=== PATIENT | male | born 1950 | race Caucasian/White ===

== ENCOUNTER 2021-07-21 10:13 | Outpatient (CLI) | payer MEDICARE, SELFPAY ==
--- NOTE | ~2021-07-21 | XR_ITS ---
XR chest 2V DATE: 07/21/2021 15:24 INDICATION: Edema TECHNIQUE: PA and lateral views COMPARISON: 05/11/2019 PA and lateral views FINDINGS: Normal heart size. No hilar or mediastinal enlargement. No pulmonary infiltrate or consolid ation, pleural effusion or pulmonary vascular congestion or pneumothorax. Degenerative spurring of the thoracic spine. IMPRESSION: No active cardiac pulmonary disease Degenerative spurring of the thoracic spine Reviewed, dictated and finalized at location A.
--- NOTE | ~2021-07-21 | US_ITS ---
EXAMINATION: US venous doppler [facility] DATE: 07/21/2021 15:13 INDICATION: Lower limb swelling TECHNIQUE: Grayscale ultrasound images without and with compression and Doppler ultrasound images of the bilateral lower extremity veins were obtained. COMPARISON: None. FINDINGS: The visualized portions of right common femoral vein, profunda (deep) femoral vein, femoral vein, pop liteal vein, posterior tibial veins, peroneal veins, gastrocnemius vein and greater saphenous vein ou tflow are patent. There are paired left femoral veins. The more superficial and larger diameter vein is patent. The cecy per and smaller caliber vein demonstrates small amount of nonocclusive peripheral hypoechoic thrombus with linear echogenic margins which can be seen with chronic thrombus. The visualized portions of le ft common femoral vein, profunda femoral vein, popliteal vein, posterior tibial veins, peroneal veins , gastrocnemius vein and greater saphenous vein outflow are patent. IMPRESSION: 1. Nonocclusive deep venous thrombosis in the smaller of [address] Hicks discusse d these findings with Dr. Rodriguez at 3:20 PM. 2. No right-sided deep venous thrombosis. Reviewed, dictated and finalized at location A. IMPRESSION: 1. Nonocclusive deep venous thrombosis in the smaller of [address] Hicks discussed these findings with Dr. Rodriguez at 3:20 PM. 2. No right-sided deep venous thrombosis.
[2021-07-21 15:57] LABS: Hematocrit 43.3 % (42.0-52.0); Hemoglobin 14.2 g/dL (14.0-18.0); Mean Corpuscular HGB Conc 32.8 g/dl (32-36); Mean Corpuscular Hemoglobin 28.8 pg (26-34); Mean Corpuscular Volume 87.8 fl (80-100); Mean Platelet Volume 9.2 fl (7.4-10.4); Platelet Count Result 190 k/mm3 (150-375); Red Blood Count 4.93 M/mm3 (4.6-6.20); Red Cell Distribution Width 13.6 % (11.5-14.5); White Blood Count 7.6 K/mm3 (4.5-10.0)
[2021-07-21 16:09] LABS: INR 1.1; Prothrombin Time 13.4 Seconds (11.1-14.7)
[2021-07-21 16:10] LABS: Partial Thromboplastin Time 29.7 SECONDS (22.3-36.8)
== END 2021-07-21 14:17 | disposition home or self-care (01) ==
PROVIDERS: PCP Internal Medicine; Visit Provider Internal Medicine
DX: R60.0 Localized edema (principal); R06.02 Shortness of breath; I82.412 Acute embolism and thrombosis of left femoral vein
CPT/HCPCS: 36415; 71046; 85027; 85610; 85730; 93970

== ENCOUNTER 2021-11-06 08:36 | Outpatient (CLI) | payer MEDICARE, SELFPAY ==
--- NOTE | ~2021-11-06 | US_ITS ---
EXAMINATION:US venous doppler LE LT INDICATION:Follow-up DVT. Patient on blood thinners. TECHNIQUE: Multiple grayscale, color flow and Doppler images of the left lower extremity deep venous systems were obtained and reviewed. COMPARISON:Ultrasound dated 07/21/2021 FINDINGS: The common femoral, superficial femoral and popliteal veins demonstrate normal respiratory variation, augmentation and compressibility. Color flow is also seen within the posterior tibial, pe roneal, greater saphenous and profunda veins. IMPRESSION: 1: No lower extremity deep venous thrombosis. Reviewed, dictated and finalized at location A.
== END 2021-11-06 08:37 | disposition home or self-care (01) ==
PROVIDERS: PCP Internal Medicine; Visit Provider Internal Medicine
DX: I82.412 Acute embolism and thrombosis of left femoral vein (principal)
CPT/HCPCS: 93971

== ENCOUNTER 2022-08-02 01:08 | Day surgery (SDC) | payer MEDICARE, SELFPAY ==
[2022-07-18 14:37] VITALS: BMI 32.8
--- NOTE | 2022-08-01 14:40 | PM.HPGS ---
History of Present Illness History of Present Illness Consent: Risks, benefits, and alternatives have been discussed and questions answered. Patient agrees to proceed with procedure. Chief complaint: hx colon polyps Narrative: Brijesh Shukla is a 72 year old male Referred for colon cancer screening. He had 3 polyps removed in 2010 and 5 more when he had a colonoscopy in 2016, And 4 more when he had his last colonoscopy about 4 years ago.. 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 Dental trauma DVT (deep venous thrombosis) Encounter for Medicare annual wellness exam Encounter for routine adult health examination with abnormal findings Encounter for routine adult health examination without abnormal findings Epistaxis Follow up Hammertoe of right foot Hand edema Hearing loss History of perforated ear drum with repair History of rectal polyps Hx of skin cancer, basal cell Hyperlipidemia Hypertension Left carpal tunnel syndrome Lumbar and sacral arthritis On fci drug therapy CHEN on CPAP Paresthesia of both hands Pedal edema Peptic ulcer Peripheral vision loss Petechiae Rash Rectal polyp Right otitis media Seasonal allergies Shingles Sinus mucosal thickening Skin cancer Skin lesion Toenail fungus Umbilical hernia Vitamin D deficiency Surgical History Surgical History H/O arthroscopic knee surgery H/O local excision of skin lesion H/O partial cystectomy H/O skin graft History of appendectomy History of cataract surgery lt eye History of total left hip arthroplasty Dr. Faye 2006 metal on metal History of tympanoplasty rt ear Hx of cardiac cath Hx of colonoscopy Family History Family History Father Cerebrovascular accident Family history of diabetes mellitus in first degree relative Diabetes mellitus Family history of cardiovascular disease Family history of heart disease in male family member before age 55 Hypertension Heart disease Mother Family history of heart disease in male family member before age 55 Family history of cardiovascular disease Daughter Asthma Sibling Hypertension Social History Social History Smoking status: Never smoker Second hand tobacco smoke exposure: No Alcohol intake: current Drinks per week: 9 Substance use type: does not use Lack of Transportation: No Lack of Food: Never True Current Housing: I Have Housing Concerned About Future Housing: No Difficulty Paying Gas/Electric Bills: No Difficulty Paying for Meds: No Currently Unemployed: No Education: High School Diploma/GED Difficulty w/ Childcare or Family Care: No Living arrangements: with family Additional living arrangements comments: [place] Occupation/Education: retired Gender identity (if verbalized by the patient): Male Meds Home Medications and Allergies Home Medications Medication Instructions Recorded Confirmed Type olmesartan 40 mg tablet See Rx Instructions PO DAILY #90 05/18/21 08/01/22 Rx tabs cholecalciferol (vitamin D3) 50 50 mcg PO DAILY 07/13/21 08/01/22 History mcg (2,000 unit) capsule aspirin 81 mg tablet,delayed 162 mg PO DAILY 11/21/21 08/01/22 History release (Adult Low Dose Aspirin) atorvastatin 20 mg tablet See Rx Instructions .Route 03/27/22 08/01/22 Rx .COMPLEX #90 tabs metoprolol succinate 100 mg See Rx Instr
[2022-08-02 06:43] VITALS: BP 149/69; PULSE 45; RESP 18; TEMP 36.4; O2SAT 99; BMI 32.5
[2022-08-02] MEDS: LACTATED RINGERS 1,000 ML 150 ML IV CONT (06:55)
[2022-08-02 08:09] VITALS: BP 104/54; PULSE 43; RESP 21; O2SAT 97
[2022-08-02 08:19] VITALS: BP 136/73; PULSE 40; RESP 14; O2SAT 97
[2022-08-02 08:29] VITALS: BP 155/72; PULSE 43; RESP 22; O2SAT 97
== END 2022-08-02 08:40 | disposition home or self-care (01) ==
PROVIDERS: PCP Internal Medicine; Visit Provider Internal Medicine Gastroenterology
PROC: 0DJD8ZZ Inspection of Lower Intestinal Tract, Via Natural or Artificial Opening Endoscopic (ICD-10-PCS; CPT 45378; principal; 2022-08-02 08:00)
DX: Z12.11 Encounter for screening for malignant neoplasm of colon (principal); K64.8 Other hemorrhoids; D12.3 Benign neoplasm of transverse colon; K63.5 Polyp of colon; I10 Essential (primary) hypertension; E78.5 Hyperlipidemia, unspecified; G47.33 Obstructive sleep apnea (adult) (pediatric); E55.9 Vitamin D deficiency, unspecified; F41.9 Anxiety disorder, unspecified; Z79.82 Long term (current) use of aspirin
CPT/HCPCS: 45385; 88305; J2704; J7120

== ENCOUNTER 2022-12-19 07:36 | Outpatient (CLI) | payer MEDICARE, SELFPAY ==
[2022-12-19 09:34] LABS: Anion Gap 8 mmol/L (8-16); Blood Urea Nitrogen 14 mg/dL (9-20); Carbon Dioxide 27 mmol/L (22-30); Chloride 95 mmol/L (98-107); Estimated Glomerular Filt Rate > 60; Glucose 107 mg/dL (65-110); Potassium 4.3 mmol/L (3.4-5.0); Sodium 130 mmol/L (137-145)
== END 2022-12-19 07:37 | disposition home or self-care (01) ==
LOC: ANHLAB 07:37
PROVIDERS: PCP Internal Medicine; Visit Provider Internal Medicine
DX: E87.1 Hypo-osmolality and hyponatremia (principal)
CPT/HCPCS: 36415; 80048

== ENCOUNTER 2022-12-28 09:37 | Outpatient (CLI) | payer MEDICARE, SELFPAY ==
--- NOTE | ~2022-12-28 | XR_ITS ---
EXAMINATION: XR chest 2V DATE: 12/28/2022 10:04 INDICATION: Hyperosmolar LT and hyponatremia TECHNIQUE: PA and lateral views of the chest are obtained. COMPARISON: 07/21/2021 FINDINGS: The lungs are free of acute opacities. No pleural effusion or pneumothorax. The cardiomedia stinal silhouette is normal. There is moderate thoracic spondylosis. IMPRESSION: 1. No acute cardiopulmonary abnormality. Reviewed, dictated and finalized at location B.
[2022-12-28 10:24] LABS: Anion Gap 6 mmol/L (8-16); Blood Urea Nitrogen 13 mg/dL (9-20); Calcium 8.8 mg/dL (8.4-10.2); Carbon Dioxide 28 mmol/L (22-30); Chloride 95 mmol/L (98-107); Estimated Glomerular Filt Rate > 60; Glucose 138 mg/dL (65-110); Potassium 4.4 mmol/L (3.4-5.0); Sodium 129 mmol/L (137-145)
[2022-12-31 21:01] LABS: Osmolality, Urine 292 mOsm/kg (50-1200)
== END 2022-12-28 09:38 | disposition home or self-care (01) ==
PROVIDERS: PCP Internal Medicine; Visit Provider Internal Medicine
DX: E87.1 Hypo-osmolality and hyponatremia (principal)
CPT/HCPCS: 36415; 71046; 80048; 83930; 83935

== ENCOUNTER 2023-01-01 06:35 | Outpatient (CLI) | payer MEDICARE, SELFPAY ==
--- NOTE | ~2023-01-01 | CT_ITS ---
Non-contrast Head CT History: Hyponatremia Technique: Axial non-contrast imaging of the brain was performed. Dose reduction technique was used on this scan by utilizing automated exposure control and iterative reconstruction technique. The dose -length product (DLP) was 605.33 mGy-cm. Findings: There is no evidence of intracranial hemorrhage, mass lesion, or acute infarct. Brain par enchyma appears normal. The ventricles and subarachnoid spaces are normal in size. The calvarium ap pears normal. The visualized paranasal sinuses and mastoid air cells are clear. Impression: No significant abnormality seen. Reviewed, dictated and finalized at location . Impression: No significant abnormality seen.
== END 2023-01-01 06:36 | disposition home or self-care (01) ==
PROVIDERS: PCP Internal Medicine; Visit Provider Internal Medicine
DX: E87.1 Hypo-osmolality and hyponatremia (principal); R53.1 Weakness
CPT/HCPCS: 70450

== ENCOUNTER 2023-01-16 07:26 | Outpatient (CLI) | payer MEDICARE, SELFPAY ==
[2023-01-16 08:38] LABS: Anion Gap 9 mmol/L (8-16); Blood Urea Nitrogen 14 mg/dL (9-20); Calcium 8.9 mg/dL (8.4-10.2); Carbon Dioxide 25 mmol/L (22-30); Chloride 100 mmol/L (98-107); Estimated Glomerular Filt Rate > 60; Glucose 104 mg/dL (65-110); Sodium 134 mmol/L (137-145)
== END 2023-01-16 07:27 | disposition home or self-care (01) ==
PROVIDERS: PCP Internal Medicine; Visit Provider Internal Medicine
DX: E87.1 Hypo-osmolality and hyponatremia (principal)
CPT/HCPCS: 36415; 80048

== ENCOUNTER 2023-03-04 06:56 | Outpatient (CLI) | payer MEDICARE, SELFPAY ==
--- NOTE | ~2023-03-04 | XR_ITS ---
Lumbosacral Spine: AP and lateral views Clinical History: Pain Findings: The normal lordotic curve is maintained. Mild chronic anterior wedging deformity of T12 and L1 noted. There is advanced degenerative disc narrowing at L4-L5 and L5-S1. There is moderate degene rative disc narrowing at remaining lumbar spine. Moderate to advanced facet joint degenerative change s present throughout the lumbar spine. The sacroiliac joints are normally outlined. Impression: Advanced degenerative spondylosis, as above. Mild chronic anterior wedging deformities of T12 and L1. Reviewed, dictated and finalized at location M. TED POLICE OFFICER Impression: Advanced degenerative spondylosis, as above. Mild chronic anterior wedging deformities of T12 and L1.
== END 2023-03-04 06:57 | disposition home or self-care (01) ==
PROVIDERS: PCP Internal Medicine; Visit Provider Internal Medicine
DX: M43.06 Spondylolysis, lumbar region (principal); S32.010A Wedge compression fracture of first lumbar vertebra, initial encounter for closed fracture; S22.080A Wedge compression fracture of T11-T12 vertebra, initial encounter for closed fracture
CPT/HCPCS: 72100

== ENCOUNTER 2023-05-16 08:00 | Outpatient (CLI) | payer MEDICARE, SELFPAY ==
--- NOTE | ~2023-05-16 | MR_ITS ---
EXAMINATION: MRI SACRUM W/O CONTRAST DATE: 05/16/2023 09:00 INDICATION: Unspecified low back pain TECHNIQUE: Magnetic resonance imaging (MRI) of the sacrum was performed without intravenous contrast. Sequences included sagittal PD-weighted FSE and fluid sensitive FSE STIR; oblique axial T1-weighted FSE and T2-weighted FS FSE; oblique coronal T2-weighted FSE, T1-weighted FSE and T2-weighted FS FSE. COMPARISON: Radiographs dated 08/01/2022 FINDINGS: Magnetic field artifact centered at the left acetabulum/with a left total hip arthroplasty. Bone alig nment is normal. Somewhat heterogeneous pattern of red and yellow marrow signal. Severe lower lumbar spondylosis with associated fibrofatty and fibrovascular degenerative endplate changes along the sha rely narrowed disc space. Large bridging anterior osteophyte at L5-S1. Moderate osteoarthritis at the bilateral sacroiliac joints. There are no erosions to suggest inflammatory sacroiliitis. Mild mucosa l trabeculation the bladder likely related to chronic outlet obstruction from the partially visualize d enlarged prostate which measures at least 5.6 x 4.5 cm. No free fluid or pathologically enlarged ly mphadenopathy in the visualized pelvis. There are cysts at the right kidney, the larger partially vis ualized cyst measuring at least 5.9 cm. IMPRESSION: 1. Moderate bilateral sacroiliac osteoarthritis with no erosions to suggest inflammatory sacroiliitis . 2. Severe lower lumbar spondylosis. Reviewed, dictated and finalized at location A. FICIAL TEETH INSPECTOR IMPRESSION: 1. Moderate bilateral sacroiliac osteoarthritis with no erosions to suggest inf lammatory sacroiliitis. 2. Severe lower lumbar spondylosis.
--- NOTE | ~2023-05-16 | MR_ITS ---
MRI of the lumbar spine Clinical History: Back pain Technique: Axial T2-weighted images, and sagittal T1-weighted, T2-weighted, and T2 fat-sat images wer e acquired. Findings: There is acute, minimal compression fracture of L1, with hypointense fracture line, marrow edema, and minimal loss of height. There is minimal grade 1 retrolisthesis of L2 over L3. There is he terogeneous marrow signal, related to underlying degenerative disc disease. At L1-L2, there is disc bulge and moderate facet arthropathy. No ivory central canal stenosis. There is moderate to severe bilateral neural foraminal narrowing. At L2-L3, there is advanced degenerative disc narrowing. Disc bulge and facet arthropathy result in s evere central canal stenosis/thecal sac compression. There is moderate to severe right neural foramin al narrowing, and mild to moderate left neural foraminal narrowing. At L3-L4, there is advanced degenerative disc narrowing. Disc bulge and facet arthropathy result in m ild to moderate central canal stenosis. There is moderate to advanced right neural foraminal narrowin g, and moderate left neural foraminal narrowing. At L5-S1, there is severe degenerative disc narrowing. There is advanced facet arthropathy with minim al disc bulge. There is minimal central canal stenosis. There is moderate left neural foraminal narro wing. Right neural foramen preserved. At L5-S1, there is severe degenerative disc change. There is disc bulge and moderate facet arthropath y. No ivory central canal stenosis. There is moderate to severe bilateral neural foraminal narrowing. Paravertebral soft tissues are unremarkable. Impression: Acute, mild compression fracture of L1. Advanced degenerative spondylosis in the lumbar spine, as detailed above. Reviewed, dictated and finalized at location M. TROUBLE SHOOTER Impression: Acute, mild compression fracture of L1. Advanced degenerative spondylosis in the lumbar spine, as detailed above.
== END 2023-05-16 08:01 | disposition home or self-care (01) ==
PROVIDERS: PCP Internal Medicine; Visit Provider Internal Medicine
DX: M54.41 Lumbago with sciatica, right side (principal); G89.29 Other chronic pain; M25.551 Pain in right hip; M25.552 Pain in left hip; M47.896 Other spondylosis, lumbar region
CPT/HCPCS: 72148; 72195; 72197

== ENCOUNTER 2023-06-05 11:44 | Outpatient (CLI) | payer MEDICARE, SELFPAY ==
--- NOTE | ~2023-06-05 | DEXA_ITS ---
Bone Density Report Name: HALEY SARGENT Age: 73 Sex: Male Ethnicity: White Date of : 1950 Indication: screening for osteoporosis; Referring Provider: JANET SHETH Study: Bone densitometry was performed. Exam Date: June 05, 2023 Accession number: [id number] Bone Density: Region BMD T-score Z-score Classification AP Spine(L1-L4) 1.456 3.3 4.3 Normal Femoral Neck (Right) 0.994 0.5 1.7 Normal Total Hip (Right) 1.114 0.5 1.3 Normal World Health Organization criteria for BMD impression classify patients as: Normal (T-score at or above -1.0), Osteopenia (T-score between -1.0 and -2.5), or Osteoporosis (T-score at or below -2.5). 10-year Fracture Risk: FRAX not reported because: All T-scores for Spine Total, Hip Total, Femoral Neck at or above -1.0 Clinical Information Provided by Patient: Has used the following medications: Vitamin D Patient maximum height was 72 No regular weight bearing exercise Drinks caffeinated beverages Impression: The patient has normal bone mass. Discussion: BONE DENSITY IS ABOVE THE MINIMUM DESIRABLE LEVEL AT ALL SKELETAL SITES TESTED. This patient?s bone mineral density is above the minimum desirable level (T-score -1.0 or better) at all sites measured. The patient should follow a healthful lifestyle (good nutrition with adequate calcium and vitamin D, and appropriate weight-bearing exercise). Follow-Up: Consider repeating this study in 5 years or sooner if there is some new clinical indication. Reported by: Dr. Blaise Castañeda on 06/05/2023 12:08:00 PM. Reviewed, dictated and finalized at location A.
== END 2023-06-05 11:45 | disposition home or self-care (01) ==
LOC: CHSIMG 11:45
PROVIDERS: PCP Internal Medicine; Visit Provider Internal Medicine
DX: S32.000A Wedge compression fracture of unspecified lumbar vertebra, initial encounter for closed fracture (principal)
CPT/HCPCS: 77080

== ENCOUNTER 2023-07-08 17:25 | Outpatient (CLI) | payer MEDICARE, SELFPAY ==
--- NOTE | ~2023-07-08 | XR_ITS ---
EXAM: XR hip RT 2V w AP pelvis DATE: 07/08/2023 17:39 HISTORY: M25.551 - ANTERIOR RIGHT HIP PAIN X1 WK . COMPARISON: X-ray left hip and pelvis 08/01/2022. FINDINGS: Normal mineralization. Partially visualized bipolar left hip arthroplasty. Significant lum bar degenerative change including large bridging osteophytes. Pelvic and hip enthesopathy. Amorphous calcification adjacent to the greater trochanter on the right. Moderate superior right hip joint spac e narrowing. Mild right hip osteoarthritis. IMPRESSION: Moderate right hip osteoarthritis. Right gluteus medius calcific tendinitis. Reviewed, dictated and finalized at location K. IMPRESSION: Moderate right hip osteoarthritis. Right gluteus medius calcific te ndinitis.
== END 2023-07-08 17:26 | disposition home or self-care (01) ==
LOC: ANHIMG 17:26
PROVIDERS: PCP Internal Medicine; Visit Provider Internal Medicine
DX: M16.11 Unilateral primary osteoarthritis, right hip (principal); M76.01 Gluteal tendinitis, right hip
CPT/HCPCS: 73502

== ENCOUNTER 2023-08-09 10:58 | Outpatient (CLI) | payer MEDICARE, SELFPAY ==
[2023-08-09 11:23] LABS: Appearance Urine Clear (Clear); Bacteria Urine None Seen /hpf; Bilirubin Urine Negative (Negative); Blood Urine 3+ (Negative); Color Urine Yellow (Yellow); Glucose Urine UA Negative (Negative); Ketones Urine Negative (Negative); Leukocyte Esterase Ur 1+ LEU/UL (Negative); Nitrate Urine Negative (Negative); Non Pathogenic Casts 0-2; Protein Urine Negative (Negative); RBC Urine >100 /hpf (0-2); Squamous Epithelial Cell Urine None Seen /hpf (Few); Urobilinogen Urine 0.2 mg/dL (<2.0); WBC Urine 21-50 /hpf (0-3); pH Urine 6.5 (5.0-9.0)
[2023-08-09 11:25] LABS: Add Urine Microscopic? YES
== END 2023-08-09 10:59 | disposition home or self-care (01) ==
PROVIDERS: PCP Internal Medicine; Visit Provider Internal Medicine
DX: R31.9 Hematuria, unspecified (principal)
CPT/HCPCS: 81001; 87086

== ENCOUNTER 2023-08-14 10:05 | Outpatient (CLI) | payer MEDICARE, SELFPAY ==
--- NOTE | ~2023-08-14 | CT_ITS ---
EXAMINATION: CT abdomen pelvis wo con DATE: 08/14/2023 10:24 INDICATION: Hematuria, unspecified. TECHNIQUE: Computed tomography (CT) of the abdomen and pelvis was performed without intravenous contr ast. Automated exposure control and iterative reconstruction technique were employed. The dose-length product was 1092.72 mGy-cm. COMPARISON: None. FINDINGS: The visualized portions of the lung bases demonstrate mild atelectasis. No pleural effusion . The heart size is normal. No pericardial effusion. There are 2 cysts in the liver measuring up to 1 7 mm. The gallbladder is contracted. The spleen, pancreas, and adrenal glands are normal. There are c ysts in the kidneys measuring up to 6.9 cm on the left. There is diffuse bladder wall thickening, lik prisca secondary to chronic outlet obstruction from the moderately enlarged prostate. There is no urolit hiasis. There is a left inguinal hernia containing fat. There are changes of appendectomy. Aortic ath erosclerosis is noted. There are no pathologically enlarged lymph nodes. There is no free intraperito xavier fluid. There is a left hip arthroplasty. There is severe lumbar spondylosis. There is mild chron ic height loss of multiple vertebral bodies. IMPRESSION: 1. Diffuse bladder wall thickening, likely secondary to chronic outlet obstruction from the moderatel y enlarged prostate. Reviewed, dictated and finalized at location E. IMPRESSION: 1. Diffuse bladder wall thickening, likely secondary to chronic outlet obstruct ion from the moderately enlarged prostate.
== END 2023-08-14 10:06 ==
LOC: GOSHIMG 10:05
PROVIDERS: PCP Internal Medicine; Visit Provider Internal Medicine
DX: R31.9 Hematuria, unspecified (principal)
CPT/HCPCS: 74176

== ENCOUNTER 2025-03-11 16:11 | Outpatient (CLI) | payer MEDICARE, SELFPAY ==
--- NOTE | ~2025-03-11 | XR_ITS ---
EXAMINATION: Pelvis 3 views: DATE: 03/11/2025. INDICATION: Hip pain. Previous left hip arthroplasty. TECHNIQUE: 3 views of both hips and pelvis. were obtained. COMPARISON: Pelvis and hip x-ray dated 07/08/2023. FINDINGS: Postoperative changes of total hip arthroplasty in satisfactory alignment of the left hip. Moderate degenerative arthritis of right hip. Calcific tendinitis over the greater trochanter at the right hip. Bilateral sacroiliac arthritis. IMPRESSION: 1. Total hip arthroplasty device at the left hip in satisfactory alignment. 2. Degenerative arthritis of right hip and bilateral sacroiliac joints look prior study. Calcific tendinitis over the greater trochanter right hip. Reviewed, dictated and finalized at location T. RACT PROJECT MANAGER IMPRESSION: 1. Total hip arthroplasty device at the left hip in satisfactory alignment. 2. Degenerative arthritis of right hip and bilateral sacroiliac joints look wendy or study. Calcific tendinitis over the greater trochanter right hip.
--- NOTE | ~2025-03-11 | XR_ITS ---
EXAMINATION: XR knee RT 3V DATE: 03/11/2025 16:52 INDICATION: Right knee pain. TECHNIQUE: 4 views of the right knee were obtained. COMPARISON: None. FINDINGS: No acute bony lesions. Thickening grade 3-4 degenerative changes of medial compartment. Milder degenerative changes of lateral compartment the patellofemoral joints. Soft tissues are unremarkable. IMPRESSION: 1. Significant, grade 3 to grade 4 degenerative changes of medial compartment of the right knee. Reviewed, dictated and finalized at location T. CAL ASSISTANT FLOAT IMPRESSION: 1. Significant, grade 3 to grade 4 degenerative changes of medial compartment o f the right knee.
--- NOTE | ~2025-03-11 | XR_ITS ---
EXAMINATION: Lumbosacral spine 4 views: DATE: 03/11/2025. INDICATION: Low back pain TECHNIQUE: 4 views of the lumbosacral spine were obtained. COMPARISON: None. FINDINGS: No acute bony lesions. Severe multilevel degenerative disc changes involving the lower thoracic discs and all lumbar discs. Significant facet arthropathy is noted at L2-3, L4-5 and L5-S1 levels. Soft tissues show calcific changes of abdominal aorta. IMPRESSION: 1. Severe multilevel degenerative disc disease and facet arthropathy. Calcific changes of abdominal aorta. Reviewed, dictated and finalized at location T. IONS CLERK
--- OUTSIDE RECORDS SUMMARY | 2025-03-11 08:30 | XMS_ITS | Encounter Summary ---
[facility] Address [address] [place] [address] Phone Care Team Providers Care Travel Assistant Name Role Phone Jorge Rodriguez MD Primary Care Provider [phone] Fernando Herrera MD Unavailable [phone] Jorge Coffey MD Unavailable [phone] Reason for Visit * Reason Comments Chemotherapy Encounter Details Date Type Department Care Team (Latest Contact Info) Description 03/11/2025 8:30 AM ACTIVITY LEADER Clinical Support [facility] [address] [address] Malignant neoplasm of urinary bladder, unspecified site (Primary Dx); Malignant neoplasm of overlapping sites of bladder Social History Tobacco Use Types Packs/Day Years Used Date Smoking Tobacco: Never Smokeless Tobacco: Never Alcohol Use Standard Drinks/Week Comments Yes 15 (1 standard drink = 0.6 oz pu re alcohol) Sex and Gender Information Value Date Recorded Sex Assigned at Not on file Legal Sex Male 2:13 PM CDT Gender Identity Not on file Sexual Orientation Not on file documented as of this encounter Functional Status * BP Answer Date of Assessment Author 150/82 03/11/2025 8:35 AM Kirsty Hassan RN * Temp Answer Date of Assessment Author 98 03/11/2025 8:35 AM Kirsty Hassan RN * Pulse Answer Date of Assessment Author 74 03/11/2025 8:35 AM Kirsty Hassan RN * Resp Answer Date of Assessment Author 16 03/11/2025 8:35 AM Kirsty Hassan RN * SpO2 Answer Date of Assessment Author 97 03/11/2025 8:35 AM Kirsty Hassan RN * Height Answer Date of Assessment Author 71 03/11/2025 8:35 AM Kirsty Hassan RN * Question Answer Date of Assessment Author Initial Score 0 03/11/2025 8:36 AM Kirsty Yu RN Little interest or pleasure in doing things Not at all 03/11/2025 8:36 AM Kirsty De Santiago RN Feeling down, depressed, or hopeless Not at all 03/11/2025 8:36 AM Kirsty De Santiago RN * Question Answer Date of Assessment Author Initial Score 0 03/11/2025 8:36 AM Kirsty Yu RN Little interest or pleasure in doing things Not at all 03/11/2025 8:36 AM Kirsty De Santiago RN Feeling down, depressed, or hopeless Not at all 03/11/2025 8:36 AM Kirsty De Santiago RN * Over the past 2 weeks, how often have you been bothered by any of the following problems? Question Answer Date of Assessment Author Patient Health Questionnaire -2 Score 0 03/11/2025 8:36 AM Kirsty De Santiago RN documented as of this encounter Mental Status * BP Answer Entry Date Author 150/82 03/11/2025 8:35 AM Kirsty Hassan RN * Temp Answer Entry Date Author 98 03/11/2025 8:35 AM Kirsty Hassan RN * Pulse Answer Entry Date Author 74 03/11/2025 8:35 AM Kirsty Hassan RN * SpO2 Answer Entry Date Author 97 03/11/2025 8:35 AM Kirsty Hassan RN * Question Answer Entry Date Author Initial Score 0 03/11/2025 8:36 AM ACTIVITY LEADER Kirsty Reis RN Little interest or pleasure in doing things Not at all 03/11/2025 8:36 AM Kirsty De Santiago RN Feeling down, depressed, or hopeless Not at all 03/11/2025 8:36 AM ACTIVITY LEADER Kirsty Martínez RN documented in this encounter Progress Notes * Tracy Mckinney RN - 03/11/2025 10:56 AM CST 03/11/25 0916 Single Lumen Implantable Port 10/22/23 Right Chest Placement Date: 10/22/23 Orientation: Right Implantable Port Location: Chest Line Status Flushed;Heparin locked Dressing Status Removed Dressing Intervention Removed Implantable Port Flush Performed Yes Line Necessity Yes, meets criteria De-Accessed Date 03/11/25 De-Accessed Time 0916 VITY LEADER * Tracy Mckinney RN - 03/11/2025 10:55 AM CST Tolerated Pembrolizumab well. Chemotherapy/Immunotherapy drug verification was completed by two nurses, checking the physicality of the bag of fluid and accompanying label against the original order for accuracy of patient name, or MRN, drug name, drug dose, infusion volume, route of administration, infusion rate, appearance and integrity of the drug, drug expiration date and time was verified using the CCSI specific drugSOP, and the rate and volume of the infusion as stated on the infusion bag. Drug sequencing was verified according the the treatment plan, NCCN guidelines, SOP, or other ONS approved references. Chemotherapy/Immunotherapy treatment completed as prescribed by the practitioner without signs or symptoms of hypersensitivity reactions. Possible side effects and side effect management reviewed with patient prior to discharge. Discussed if patient had need for assistance with social welfare research worker, dietary assistance, and/or transportation needs. Denied psychosocial concerns at this time. Reviewed how to notify the clinic during and after office hours if needed. Reviewed patient's follow-up appointment. ECOG status unchanged from arrival to Infusion area. Discharged ambulatory unaccompanied. 03/11/25 0838 Single Lumen Implantable Port 10/22/23 Right Chest Placement Date: 10/22/23 Orientation: Right Implantable Port Location: Chest Access Date 03/11/25 Access Time 0838 Accessed by: HARLEEN Molina Catheter Size 20 G Needle Length 3/4 in Site Assessment Clean;Dry;Intact Line Status Blood return noted;Flushed;Infusing Dressing Type Other (Comment) (Steri Strips) Dressing Status Clean;Dry;Intact Dressing Intervention New dressing Implantable Port Flush Performed Yes Line Necessity Yes, meets criteria VITY LEADER documented in this encounter Plan of Treatment Upcoming Encounters Date Type Department Care Team (Late st Contact Info) Description 05/13/2025 8:45 AM ACTIVITY LEADER Office Visit [facility] [address] [address] Jorge Coffey MD [address] [place] [address] documented as of this encounter Visit Diagnoses Diagnosis Malignant neoplasm of urinary bladder, unspecified site- Primary Malignant neoplasm of overlapping sites of bladder Malignant neoplasm of other specified sites of bladder documented in this encounter Administered Medications Inactive Administered Medications - up to 3 most recent administrations Medication Order MAR Action Action Date Dose Rate Site pembrolizumab (KEYTRUDA) 200 mg in sodium chloride 0.9 % 100 mL IVPB 200 mg, Intravenous, ONCE, 1 dose, On Saskia 03/11/25 at 0900, Administer over 30 Minutes, Route IV. NS 100 ml. Infuse over 30 minutes. Administer with 0.22 micron in-line filter. Observe closely for hypersensitivity reaction. Chemo: Medication requires special safe handling and disposal.Indications:Malignant neoplasm of urinary bladder, unspecified site,Malignant neoplasm of overlapping sites of bladder New Bag 03/11/2025 8:40 AM ACTIVITY LEADER 200 mg 200 mL/hr documented in this encounter Care Teams Travel Assistant Relationship Specialty Start Date End Date Jorge Rodriguez MD PCP - General Internal Medicine 10/03/23 Fernando Herrera MD [address] [place] [address] Consulting Physician Urology 10/03/23 Jorge Coffey MD [address] [place] [phone] Consulting Physician Oncology 10/23/23 documented as of this encounter
--- OUTSIDE RECORDS SUMMARY | 2025-03-11 08:45 | XMS_ITS | Encounter Summary ---
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 Malignant neoplasm of overlapping sites of bladder Procedures CT CHEST ABDOMEN AND PELVIS W CONTRAST Jorge Coffey MD [address] [place] [address] Phone: tel: fax: Referral ID Status Reason Start Date Expiration Date Visits Re quested Visits Authorized [id number] Open 03/11/2025 1 1 CTOR OF CLINICAL EDUCATION Reason for Visit * Reason Comments Follow-up Encounter Details Date Type Department Care Team (Late st Contact Info) Description 03/11/2025 8:45 AM DIRECTOR OF CLINICAL EDUCATION Office Visit [facility] [address] [address] Jorge Coffey MD [address] [place] [address] 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 (Primary Dx); Malignant neoplasm of overlapping sites of bladder; Abnormal findings on diagnostic imaging of other specified body structures Social History Tobacco Use Types Packs/Day Years Used Date Smoking Tobacco: Never Smokeless Tobacco: Never Tobacco Cessation:Counseling Given: Not Answered Alcohol Use Standard Drinks/Week Comments Yes 15 (1 standard drink = 0.6 oz pu re alcohol) Sex and Gender Information Value Date Recorded Sex Assigned at Not on file Legal Sex Male 2:13 PM CDT Gender Identity Not on file Sexual Orientation Not on file documented as of this encounter Last Filed Vital Signs Vital Sign Reading Time Taken Comments Blood Pressure 150/82 03/11/2025 8:35 AM DIRECTOR OF CLINICAL EDUCATION Pulse 74 03/11/2025 8:35 AM DIRECTOR OF CLINICAL EDUCATION Temperature 36.7 C (98 F) 03/11/2025 8:35 AM DIRECTOR OF CLINICAL EDUCATION Respiratory Rate 16 03/11/2025 8:35 AM DIRECTOR OF CLINICAL EDUCATION Oxygen Saturation 97% 03/11/2025 8:35 AM DIRECTOR OF CLINICAL EDUCATION Inhaled Oxygen Concentration - - Weight - - Height 180.3 cm (5' 11) 03/11/2025 8:35 AM DIRECTOR OF CLINICAL EDUCATION Body Mass Index - - documented in this encounter Functional Status * BP Answer [...] 8:36 AM Kirsty De Santiago RN documented in this encounter Plan of Treatment Upcoming Encounters Date Type Department Care Team (Late st Contact Info) Description 05/13/2025 8:45 AM DIRECTOR OF CLINICAL EDUCATION Office Visit [facility] [address] [address] Jorge Coffey MD [address] [place] [address] Scheduled Orders Name Type Priority Associated Diagnoses Orde r Schedule COMPLETE BLOOD COUNT (CBC) WITH DIFF Lab Routine 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 Malignant neoplasm of overlapping sites of bladder Expected: 05/06/2025, Expires: 08/04/2025 CMP (COMPREHENSIVE METABOLIC PANEL) Lab Routine 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 Malignant neoplasm of overlapping sites of bladder Expected: 05/06/2025, Expires: 08/04/2025 LACTATE DEHYDROGENASE (LD) Lab Routine 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 Malignant neoplasm of overlapping sites of bladder Expected: 05/06/2025, Expires: 08/04/2025 MAGNESIUM (MG) Lab Routine 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 Malignant neoplasm of overlapping sites of bladder Expected: 05/06/2025, Expires: 08/04/2025 THYROID STIMULATING HORMONE (TSH) Lab Routine 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 Malignant neoplasm of overlapping sites of bladder Abnormal findings on diagnostic imaging of other specified body structures Expected: 05/06/2025, Expires: 08/04/2025 VITAMIN B12 Lab Routine 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 Malignant neoplasm of overlapping sites of bladder Expected: 05/06/2025, Expires: 08/04/2025 CT CHEST ABDOMEN AND PELVIS W CONTRAST Imaging Routine 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 Malignant neoplasm of overlapping sites of bladder Expected: 05/06/2025, Expires: 08/04/2025 documented as of this encounter Visit Diagnoses Diagnosis 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
--- OUTSIDE RECORDS SUMMARY | 2025-03-11 18:16 | XMS_ITS ---
Author Organization [facility] Address [address], [facility] [address] [place] [address] Phone Care Team Providers Care Insurance Adjustor Name Role Phone Jorge Rodriguez MD Primary Care Provider [phone] Fernando Herrera MD Unavailable [phone] Jorge Coffey MD Unavailable [phone] Active Problems Problem Noted Date Diagnosed Date Atrial fibrillation 06/25/2024 Fatigue 06/25/2024 Malignant neoplasm of overlapping sites of bladd er 03/13/2024 HTN (hypertension) 03/12/2024 Malignant neoplasm of urinary bladder 10/10/2023 Current Treatment and Therapy Plans [facility]: Pembrolizumab - 21 Day Cycle - Multiple Disease States* Plan Start Date: 03/19/2024 Plan Provider:Jorge Coffey MD Linked Problems Malignant neoplasm of urinar y bladder, unspecified siteMalignant neoplasm of overlapping sites of bladder Treatment Medications Current Day (Day 1 , Cycle 18 - Planned for 04/02/2025) Next Day (Day 1, Cycle 19 - Planned for 04/24/2025) pembrolizumab (KEYTRUDA) IVPB pembrolizu mab (KEYTRUDA) 200 mg in sodium chloride 0.9 % 100 mL IVPB pembrolizumab (KEYTRUDA) 200 mg in sodium chloride 0.9 % 100 mL IVPB SUPPORT - HYDRATION WITH ADDITIVES - [facility]* Plan Start Date:10/31/2023 Plan Provider:Jorge Coffey MD Linked Problems Malignant neoplasm of anteri or wall of urinary bladder Treatment Medications No medications scheduled. Past Treatment and Therapy Plans ONCOLOGY TREATMENT Plan Name Start Date Discontinue Date Treatment Medications Discontinue Reason Plan Provider Cycles BLADDER - CISPLATIN/G EMCITABINE - [facility] 10/17/2023 03/12/2024 CISplatin (PLATINOL) chemo infusion using 100 mggemcitabine (GEMZAR) chemo infusion Plan Clean Up Jorge Coffey MD 4 of 4 cycles started Lifetime Dose Tracking * Chemical Lifetime Dose Automatic Entry Manual Entr y Cisplatin 280.043 mg/m2 (642 mg) 280.043 mg/m2 (642 mg) 0 mg/m2 (0 mg)
--- OUTSIDE RECORDS SUMMARY | 2025-03-11 18:16 | XMS_ITS | Encounter Summary ---
Author Organization [facility] Address [facility] [facility] [place] [address] Care Team Providers Care Assistant Professor Sculpture Name Role Phone Jorge Rodriguez MD Primary Care Provider [phone] Encounter Details Date Type Department Care Team (Late st Contact Info) Description 07/28/2024 Lab Requisition [facility] - DermPath Lab [address] [facility] [place] [id number] Tee Morris MD [facility] DERMAT[facility] [address] [place] [phone] Neoplasm of uncertain behavior of skin Social History Tobacco Use Types Packs/Day Years Used Date Smoking Tobacco: Never Assessed Sex and Gender Information Value Date Recorded Sex Assigned at Not on file Legal Sex Male 12:54 PM JANITORIAL ACCOUNT MANAGER Gender Identity Not on file Sexual Orientation Not on file documented as of this encounter Plan of Treatment Not on file documented as of this encounter Procedures Procedure Name Priority Date/Time Associated Diagnosis Comments DERMATOPATHOLOGY Routine 07/28/2024 3:33 AM CDT Neoplasm of uncertain behavior of skin documented in this encounter Results * DERMATOPATHOLOGY (07/28/2024 3:33 AM CDT) Case Report Dermatopathology Report Case: [id number] Authorizing Provider: Tee Morris MD Collected: 07/28/2024 03:33 AM Ordering Location: [facility] - Received: 07/29/2024 01:09 PM DermPath Lab Pathologist: Patsy Kirby MD Specimens: A) - Skin, right lower neck B) - Skin, left upper back 3:31 PM T DERMATOPATHOLOGY LABORATORY Final Diagnosis Specimen A. SKIN, right lower neck: BASAL CELL CARCINOMA, NODULAR TYPE (C44.41) GRANULOMATOUS DERMATITIS CONSISTENT WITH A RUPTURED CYST OR HAIR FOLLICLE (L72.0) Specimen B. 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 The specimen consists of a shave biopsy measuring 12x7x2 mm. Jar 0. Specimen B: Received is one formalin filled container labeled with the patient's name and designated left upper back. The specimen consists of a shave biopsy measuring 12x7x2 mm. Jar 0. 3:31 PM T DERMATOPATHOLOGY LABORATORY Microscopic Description Specimen A. SKIN, right lower neck: Within the dermis there are aggregates of basaloid cells with a high nuclear to cytoplasmic ratio and peripheral palisading. Neutrophils, histiocytes, and multinucleated giant cells are also present. Specimen B. SKIN, left upper back: The epidermis is mildly acanthotic. There is a lichenoid infiltrate with vacuolar changes of basilar keratinocytes and scattered necrotic keratinocytes. In the adjacent dermis there is an inflammatory infiltrate including epithelioid histiocytes arranged in well-defined granulomas and sparse lymphocytes as well as neutrophils, histiocytes, and multinucleated giant cells adjacent to distorted follicular epithelium. The hematoxylin and eosin stain is reviewed; special stains are performed to evaluate for an infectious etiology of these histologic findings. PAS tissue stain highlights rare yeast in the stratum corneum. Tissue Gram stain is negative for bacteria in the sections examined. Reed stain is negative for mycobacteria. COMMENT: These findings likely represent two separate processes, the first a lichenoid keratosis and the second a granulomatous dermatitis. The presence of sarcoidal granulomas could represent sarcoidosis or a sarcoidal granulomatous response to a ruptured cyst/follicle. If there is clinical concern for an infectious etiology, consideration could be given to tissue culture to definitively exclude this possibility. Lastly, a lichenoid and granulomatous dermatitis was briefly considered, however this seems unlikely in the context of a solitary lesion and is not favored. Clinicopathologic correlation is recommended. 3:31 PM CDT DERMATOPATHOLOGY LABORATORY Disclaimer An external and internal positive and negative controls are appropriate for the histochemical, immunohistochemical and immunofluorescence stain(s) in this case (if any), except where stated explicitly. The performance characteristics of the stain(s) cited in this report were developed and its performance characteristic determined by the Dermatopathology Laboratory at [facility], directed by Dr. Brennon Nj. These tests need not be, and therefore are not, approved by the [place] Food and Drug Administration. The tests are used for clinical purposes. Billing Codes Specimen Charges Stain Charges 11581 55288 1 1 94770 04625 64890 1 1 1 3:31 PM CDT DERMATOPATHOLOGY LABORATORY Embedded Images 3:31 PM CDT DERMATOPATHOLOGY LABORATORY Pathology/Cytology TISSUE SPECIMEN FROM SKIN / Unknown 07/28/2024 3:33 AM CDT 07/29/2024 1:09 PM CDT Miscellaneous samples (specimen) TISSUE SPECIMEN FROM SKIN / Unknown 07/28/2024 3:33 AM CDT 07/29/2024 1:09 PM CDT Tee Morris MD LAB - PATHOLOGY/CYTOLOGY RITESH FALLON Final Result DERMATOPATHOLOGY LABORATORY [facility] - Department of Dermatology [facility] Specialized Medicine [address] [place] [address], [address] [place] [address], [facility] [phone] documented in this encounter Visit Diagnoses Diagnosis Neoplasm of uncertain behavior of skin documented in this encounter Care Teams Assistant Professor Sculpture Relationship Specialty Start Date End Date Jorge Rodriguez MD [address] [facility] [address] [place] [address] PCP - General 04/17/19 documented as of this encounter
--- OUTSIDE RECORDS SUMMARY | 2025-03-11 18:16 | XMS_ITS | Clinical Summary ---
Author Organization [facility] Address [address], [facility] [address] [place] [address] Phone Care Team Providers Care Chief Technology Officer Name Role Phone Jorge Rodriguez MD Primary Care Provider [phone] Fernando Herrera MD Unavailable [phone] Jorge Coffey MD Unavailable [phone] Allergies No known active allergies Medications Olmesartan Medoxomil 40 MG Tablet Take 40 mg by mouth daily. 9 Active atorvastatin (LIPITOR) 10 MG Tablet Take 10 mg by mouth daily. 4 Active ALPRAZolam (XANAX) 0.25 MG Tablet Take 0.25 mg by mouth. Active Cholecalciferol (D2000 Ultra Strength) 2000 UNIT Capsule 9 Active acetaminophen (TYLENOL) 500 MG Tablet Take 500 mg by mouth. Active polyethylene glycol (GLYCOLAX) 17 GM/SCOOP Powder Take 17 g by mouth. Active hydroCHLOROthia zide 12.5 MG Tablet Take 12.5 mg by mouth daily. 4 Active amLODIPine (NORVASC) 5 MG Tablet Take 5 mg by mouth daily. Active ondansetron (Zofran) 8 MG TabletIndicatio ns:Cancer Chemotherapy-In duced Nausea and Vomiting Take 1 Tablet by mouth every 6 hours. Indications: Nausea and Vomiting caused by Cancer Chemotherapy 30 Tablet 2 12/26/202 4 Active Additional Information Patient not taking.Reported on 03/11/2025 Ferrous Sulfate 325 (65 Fe) MG Tablet Delayed Response Take 1 Tablet by mouth every other day. Active amoxicillin (AMOXIL) 500 MG Capsule TAKE FOUR CAPSULES BY MOUTH ONE HOUR BEFORE APPOINTMENT Active aspirin 81 MG Chewable Tablet Take 81 mg by mouth daily. 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 (Primary Dx); Malignant neoplasm of overlapping sites of bladder; Abnormal findings on diagnostic imaging of other specified body structures 03/11/2025 8:30 AM TECHNICAL SERVICES REP Clinical Support [facility] [address] [phone] Malignant neoplasm of urinary bladder, unspecified site (Primary Dx); Malignant neoplasm of overlapping sites of bladder 03/11/2025 Travel 03/09/2025 Telephone [facility] [address] [phone] Jorge Coffey MD 02/18/2025 8:45 AM CDT Office Visit [facility] [id number] [place] [phone] Yari Lima, AIRPLANE CABIN ATTENDANT, HANDBOOK WRITER Malignant neoplasm of urinary bladder, unspecified site (Primary Dx); Weakness 02/18/2025 8:30 AM CDT Clinical Support [facility] [place] [facility] [id number] [phone] Malignant neoplasm of urinary bladder, unspecified site (Primary Dx); Malignant neoplasm of overlapping sites of bladder 02/18/2025 Travel 02/03/2025 Telephone [facility] [address] [address] Jorge Coffey MD Canopy call / CT scan 01/28/2025 8:45 AM CDT Clinical Support [facility] [address] [address] Malignant neoplasm of urinary bladder, unspecified site (Primary Dx); Malignant neoplasm of overlapping sites of bladder 01/28/2025 8:30 AM CDT Office Visit [facility] [address] [address] Yari Lima, AIRPLANE CABIN ATTENDANT, HANDBOOK WRITER Malignant neoplasm of urinary bladder, unspecified site (Primary Dx); Weakness 01/28/2025 Travel 01/07/2025 8:45 AM CDT Clinical Support [facility] [address] [address] Malignant neoplasm of urinary bladder, unspecified site (HCC) (Primary Dx); Malignant neoplasm of overlapping sites of bladder (HCC) 01/07/2025 8:30 AM CDT Office Visit [facility] [address] [address] Yari Lima, AIRPLANE CABIN ATTENDANT, HANDBOOK WRITER Malignant neoplasm of urinary bladder, unspecified site (HCC) (Primary Dx); Malignant neoplasm of overlapping sites of bladder (HCC); Weakness 01/07/2025 Travel 12/17/2024 8:45 AM CDT Clinical Support [facility] [address] [address] Malignant neoplasm of urinary bladder, unspecified site (HCC) (Primary Dx); Malignant neoplasm of overlapping sites of bladder (HCC) 12/17/2024 8:30 AM CDT [facility] [address] [address] Yari Lima, AIRPLANE CABIN ATTENDANT, HANDBOOK WRITER Malignant neoplasm of urinary bladder, unspecified site (HCC) (Primary Dx); Weakness 12/17/2024 Travel from Last 3 Months Family History Relation Name Status Comments Brother 1 Brother 2 Alive Brother 3 Alive Brother 4 Alive Daughter Father Mother Son Alive Social History Tobacco Use Types Packs/Day Years [...] on file Sexual Orientation Not on file Last Filed Vital Signs Vital Sign Reading Time Taken Comments Blood Pressure 150/82 03/11/2025 8:35 AM TECHNICAL SERVICES REP Pulse 74 03/11/2025 8:35 AM TECHNICAL SERVICES REP Temperature 36.7 C (98 F) 03/11/2025 8:35 AM TECHNICAL SERVICES REP Respiratory Rate 16 03/11/2025 8:35 AM TECHNICAL SERVICES REP Oxygen Saturation 97% 03/11/2025 8:35 AM TECHNICAL SERVICES REP Inhaled Oxygen Concentration - - Weight 103.4 kg (228 lb) 02/18/2025 8:40 AM CDT Height 180.3 cm (5' 11) 03/11/2025 8:35 AM TECHNICAL SERVICES REP Body Mass Index 31.8 02/18/2025 8:40 AM CDT Plan of Treatment Upcoming Encounters Date Type Department Care Team (Late st Contact Info) Description 05/13/2025 8:45 AM TECHNICAL SERVICES REP Office Visit [facility] [address] [address] Jorge Coffey MD [address] [place] [phone] Health Maintenance Due Date Last Done Comments Hepatitis C Virus (HCV) Screening 1950 Cologuard 1995 Colonoscopy 1995 Colorectal Cancer Screening 1995 Immunochemical Fecal Occult Blood 1995 Medicare Initial AWV [id number] 04/22/2024 SARS-COV-2 Immunization (8 - Moderna risk season) 2025 02/23/2025, 02/15/2023, 02/01/2022, Additional history exists TdaP Immunization Completed 02/13/2012 Pneumococcal Immunization (50+ years) Completed 01/02/2017, 03/15/2015 Zoster Immunization Completed 11/11/2017, 08/11/2017, 06/03/2017, Additional history exists Respiratory Syncytial Virus (RSV) Immunization (Adult) Completed 01/30/2023 Influenza Immunization Completed , 01/24/2024, 01/30/2023, Additional history exists Hepatitis B Immunization Aged Out No longer eligible based on patient's age to complete this topic Human Papillomavirus (HPV) Immunization Aged Out No longer eligible based on patient's age to complete this topic Meningococcal Immunization (ACWY) Aged Out No longer eligible based on patient's age to complete this topic Rotavirus Immunization Aged Out No lo nger eligible based on patient's age to complete this topic Insurance Care Teams Chief Technology Officer Relationship Specialty Start Date End Date Jorge Rodriguez MD PCP - General Internal Medicine 10/03/23 Fernando Herrera MD [address] [place] [address] Consulting Physician Urology 10/03/23 Jorge Coffey MD [address] [place] [phone] Consulting Physician Oncology 10/23/23
--- OUTSIDE RECORDS SUMMARY | 2025-03-11 18:16 | XMS_ITS | Encounter Summary ---
Author Organization [facility] Address [address] [place] [address] Phone Care Team Providers Care Plasterer Spot Name Role Phone Jorge Rodriguez MD Primary Care Provider Fernando Herrera MD Unavailable [phone] Jorge Coffey MD Unavailable [phone] Encounter Details Date Type Department Care Team (Late st Contact Info) Description 04/16/2024 Telephone [facility] [address] [place] [address] Jorge Coffey MD [address] [place] [address] Social History Tobacco Use Types Packs/Day Years [...] * BP Answer Date of Assessment Author 152/78 04/16/2024 9:07 AM Lamar Castle CMA * Temp Answer Date of Assessment Author 98 04/16/2024 9:07 AM Lamar Castle CMA * Pulse Answer Date of Assessment Author 76 04/16/2024 9:07 AM SECURITY GUARD Lamar Ritchie [employer] * Resp Answer Date of Assessment Author 16 04/16/2024 9:07 AM SECURITY GUARD Lamar Ritchie [employer] * Height Answer Date of Assessment Author 71 04/16/2024 9:07 AM SECURITY GUARD Lamar Ritchie [employer] * Weight Answer Date of Assessment Author 3598.4 04/16/2024 9:07 AM SECURITY GUARD Magalis Ritchiera, [employer] * Question Answer Date of Assessment Author Initial Score 0 04/16/2024 9:03 AM SECURITY GUARD Lamar Davila [employer] Little interest or pleasure in doing things Not at all 04/16/2024 9:03 AM SECURITY GUARD Magalis Ritchiera , [employer] Feeling down, depressed, or hopeless Not at all 04/16/2024 9:03 AM SECURITY GUARD Magalis Ritchiera , [employer] * Question Answer Date of Assessment Author Initial Score 0 04/16/2024 9:03 AM SECURITY GUARD Lamar Davila [employer] Little interest or pleasure in doing things Not at all 04/16/2024 9:03 AM SECURITY GUARD Magalis Ritchiera , [employer] Feeling down, depressed, or hopeless Not at all 04/16/2024 9:03 AM SECURITY GUARD Magalis Ritchiera [employer] * Over the past 2 weeks, how often have you been bothered by any of the following problems? Question Answer Date of Assessment Author Patient Health Questionnaire -2 Score 0 04/16/2024 9:03 AM SECURITY GUARD Lamar Ritchie [employer] documented as of this encounter Mental Status * BP Answer Entry Date Author 152/78 04/16/2024 9:07 AM SECURITY GUARD Lamar Ritchie [employer] * Temp Answer Entry Date Author 98 04/16/2024 9:07 AM SECURITY GUARD Lamar Ritchie, [employer] * Pulse Answer Entry Date Author 76 04/16/2024 9:07 AM SECURITY GUARD Lamar Ritchie [employer] * Weight Answer Entry Date Author 3598.4 04/16/2024 9:07 AM SECURITY GUARD Lamar Ritchie, [employer] * Question Answer Entry Date Author Initial Score 0 04/16/2024 9:03 AM SECURITY GUARD Lamar Davila [employer] Little interest or pleasure in doing things Not at all 04/16/2024 9:03 AM SECURITY GUARD Lamar Ritchie CMA Feeling down, depressed, or hopeless Not at all 04/16/2024 9:03 AM SECURITY GUARD Lamar Ritchie CMA documented in this encounter Plan of Treatment Upcoming Encounters Date Type Department Care Team (Late st Contact Info) Description 05/13/2025 8:45 AM SECURITY GUARD Office Visit [facility] [address] [address] Jorge Coffey MD [address] [place] [address] documented as of this encounter Visit Diagnoses Not on filedocumented in this encounter Care Teams Plasterer Spot Relationship Specialty Start Date End Date Jorge Rodriguez MD PCP - General Internal Medicine 10/03/23 Fernando Herrera MD [address] [place] [address] Consulting Physician Urology 10/03/23 Jorge Coffey MD [address] [place] [address] Consulting Physician Oncology 10/23/23 documented as of this encounter
--- OUTSIDE RECORDS SUMMARY | 2025-03-11 18:16 | XMS_ITS | Clinical Summary ---
Author Organization [facility] Address [address] [place] [address] Care Team Providers Care Flying I Instructor Name Role Phone Jorge Rodriguez MD Primary Care Provider [phone] Source Comments [facility],non-owned Affiliates and Associated Physician Practices is amultiple site organization consisting of ambulatory clinics and hospital sitesin [place], [place], [place]. This disclosure is being madepursuant to the Care Everywhere program and may not contain all information available regarding this patient. 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 Gender Identity Not on file Sexual Orientation Not on file Plan of Treatment Health Maintenance Due Date Last Done Comments COLOGUARD (AGES 45-75) - COL ON CA SCREENING 1950 COLON MONITORING 1950 COLONOSCOPY - COLON CA SCREENING 1950 CT COLONOGRAPHY - COLON CA SCREENING 1950 Colorectal Cancer Screening 1950 FIT - COLON CA SCREENING 1950 FLEX SIG - COLON CA SCREENING 1950 LIPID TESTING 1950 HEPATITIS C SCREENING 02/01/1968 DTAP/TDAP/TD VACCINES (1 - Tdap) 1969 PNEUMOCOCCAL VACCINE 50+ (1 of 1 - PCV) 02/06/2000 ZOSTER VACCINE (1 of 2) 02/06/2000 DEPRESSION SCREENING 04/22/2024 MEDICARE AWV CALENDAR YEAR 2024 COVID-19 VACCINE (1 - 2024-2 6 season) 2024 INFLUENZA VACCINE (#1) 2024 Respiratory Syncytial Virus (RSV) Vaccine Pt: or over 60 yrs (1 - 1-dose 75+ series) 2025 HEPATITIS B VACCINE Aged Out No longe r eligible based on patient's age to complete this topic HIB VACCINE Aged Out No longer eligi ble based on patient's age to complete this topic HPV VACCINE Aged Out No longer eligi ble based on patient's age to complete this topic MENINGOCOCCAL (Group B) VACC INE SHARED DECISION-MAKING Aged Out No longer eligibl e based on patient's age to complete this topic MENINGOCOCCAL GROUPS A/C/Y/W VACCINE Aged Out No longer eligible b ased on patient's age to complete this topic Insurance [employer] [address] [place] [id number] [employer] MEDICARE ADV Care Teams Flying I Instructor Relationship Specialty Start Date End Date Jorge Rodriguez MD [address] [facility] [address] [place] [address] PCP - General 04/17/19
--- OUTSIDE RECORDS SUMMARY | 2025-03-11 18:16 | XMS_ITS | Clinical Summary ---
Author Organization [facility] [address] Address [address] [place] [address] Care Team Providers Care Catalytic Case Operator Name Role Phone Jorge Rodriguez MD Primary Care Provider [phone] Fernando Herrera MD Unavailable [phone] Allergies No known active allergies Medications olmesartan (BENICAR) 40 mg tablet Take 1 tablet (40 mg total) by mouth every morning 9 Active cholecalciferol (VITAMIN D-3) 2000 unit capsule Take 1 capsule (2,000 Units total) by mouth daily 9 Active amoxicillin 500 mg capsule Take 4 tablet/capsule (2,000 mg total) by mouth as needed (prior to dental appointments) 4 Active amLODIPine (NORVASC) 10 mg tablet Take 1 tablet (10 mg total) by mouth every morning Active atorvastatin (LIPITOR) 10 mg tablet Take 1 tablet (10 mg total) by mouth every morning Active apixaban (ELIQUIS) 5 mg tablet Take 1 tablet (5 mg total) by mouth 2 (two) times a day Active ALPRAZolam (XANAX) 0.25 mg tablet Take 1 tablet (0.25 mg total) by mouth 3 (three) times a day as needed for anxiety Active acetaminophen (TYLENOL) 500 mg tablet Take 1 tablet (500 mg total) by mouth every 6 (six) hours as needed for pain Active polyethylene glycol (MIRALAX) 17 gram packetIndicatio ns:constipation Take 1 packet (17 g total) by mouth daily as needed Active docusate sodium (COLACE) 100 mg capsuleIndicati ons:constipatio n Take 1 capsule (100 mg total) by mouth 2 (two) times a day as needed for constipation 60 capsule Active Active Problems Problem Noted Date Diagnosed Date Bladder cancer 02/10/2024 Malignant neoplasm of overlapping sites of bladd er 12/19/2023 Low back pain with right-sided sciatica 06/10/19 Other chronic pain 06/10/2023 Immunizations Immunization Administration Dates Next Due Influenza, Quadrivalent, Spl it, Preservative Free, Intramuscular 01/14/2016 Influenza, Trivalent, High D ose, Split, Preservative Free, Intramuscular 02/09/2019,01/03/2018,01/02/2017,03/15 Influenza, Trivalent, IM (MDV) 02/13/2012 Influenza, Unspecified 03/02/2013 Pneumococcal Conjugate PCV 13 03/15/2015 Pneumococcal Polysaccharide PPV23 01/02/2017 TD Preservative Free 01/03/2018 Tdap 02/13/2012 ZOSTER LIVE 06/03/2017,12/05/2016 ZOSTER Recombinant 11/11/2017,08/11/2017 Surgical History Surgery Date Site/Laterality Comments CATARACT EXTRACTION SURGERY 2011 & 2012 LASIK Around 2000 APPENDECTOMY TOTAL HIP ARTHROPLASTY 04/22/2006 - 04/21/2007 Left EAR SURGERY 04/22/1989 - 04/21/1990 Right Medical History Medical History Date Comments Cataract Surgery 2011 Hypertension HLD (hyperlipidemia) CHEN (obstructive sleep apnea) Obesity Malignant neoplasm of overla pping sites of bladder (HCC) Atrial flutter (HCC) s/p CTI abl ation on 09/25/23 Paroxysmal atrial fibrillation (HCC) History of DVT (deep vein thrombosis) Family History Medical History Relation Name Comments Diabetes Father Elliot Shukla Hypertension Father Elliot Shukla Relation Name Status Comments Father Elliot Shukla Social History Tobacco Use Types Packs/Day Years Used Date Smoking Tobacco: Never Smokeless Tobacco: Never Tobacco Cessation:Counseling Given: No [facility] Utilities Answer Date Recorded In the past 12 months has th e [employer] gas, oil, or water [email or web address] threatened to shut off services in your home? No 02/12/2024 Social Connection and Isolation Panel Answer Date Recorded In a typical week, how many times do you talk on the phone with family, friends, or neighbors? Once a week 02/12/2024 How often do you get togethe r with friends or relatives? More than three times a week 02/12/2024 How often do you attend chur ch or alevism services? More than 4 times per year 02/12/2024 Do you belong to any clubs o r organizations such as baptist groups, unions, fraternal or athletic groups, or school groups? Yes 02/12/2024 How often do you attend meet ings of the clubs or organizations you belong to? 1 to 4 times per year 02/12/2024 Are you , , di vorced, , never , or living with a partner? 02/12/2024 AUDIT-C Answer Date Recorded Q1: How often do you have a drink containing alcohol? 4 or more times a week 02/10/2024 Q2: How many drinks containi ng alcohol do you have on a typical day when you are drinking? 3 or 4 Q3: How often do you have si x or more drinks on one occasion? Less than monthly 02/10/2024 Overall Financial Resource Strain (CARDIA) Answe r Date Recorded How hard is it for you to pa y for the very basics like food, housing, medical care, and heating? Not hard at all 02/12/2024 Hunger Vital Sign Answer Date Recorded Within the past 12 months, y ou worried that your food would run out before you got the money to buy more. Never true 02/12/20 24 Within the past 12 months, t he food you bought just didn't last and you didn't have money to get more. Never true 02/12/2024 PRAPARE - Transportation Answer Date Re corded In the past 12 months, has l ack of transportation kept you from medical appointments or from getting medications? No 01/21 In the past 12 months, has l ack of transportation kept you from meetings, work, or from getting things needed for daily living? No 02/12/2024 Housing Stability Vital Sign Answer Dougie e Recorded Unable to Pay for Housing in the Last Year Not o n file 02/12/2024 In the past 12 months, how m any times have you moved where you were living? 0 02/12/2024 At any time in the [facility], were you homeless or living in a mcc (including now)? No 02/12/2024 Personal Safety Answer Date Recorded Have you ever been in or are you currently in a harmful physical or emotional relationship or is someone making you feel afraid or unsafe? 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 Gender Identity Not on file Sexual Orientation Not on file Last Filed Vital Signs Vital Sign Reading Time Taken Comments Blood Pressure 137/77 02/13/2024 11:35 AM CDT Pulse 75 02/13/2024 11:35 AM CDT Temperature 36.5 C (97.7 F) 02/13/2024 11:35 AM CDT Respiratory Rate 16 02/13/2024 11:35 AM CDT Oxygen Saturation 97% 02/13/2024 11:35 AM CDT Inhaled Oxygen Concentration - - Weight 103 kg (227 lb 1.2 oz) 02/10/2024 6:45 AM CDT Height 180.3 cm (5' 11) 02/10/2024 6:45 AM CDT Body Mass Index 31.67 02/10/2024 6:45 AM CDT Plan of Treatment Health Maintenance Due Date Last Done Comments Colon Cancer Screening-Colonoscopy 1950 Depression Screening 1950 Hepatitis C Screening 1950 Hepatitis B Screening 02/06/1968 Well Visit 65+ 2015 Covid-19 Vaccine (3 - 2024-2 6 season) 2024 06/16/2020, 05/19/2020 Influenza Vaccine (#1) 2024 9, 01/03/2018, 01/02/2017, Additional history exists Fall Risk Assessment 02/12/2025 02/13/2024 DTaP/Tdap/Td Vaccine (3 - Td or Tdap) 01/04/2028 01/03/2018, 02/13/2012 Pneumococcal vaccine 65+ Completed 01/02/2017, 02/21 Zoster Vaccine Completed 11/11/2017, 07/22, 06/03/2017, Additional history exists Abdominal Aortic Aneurysm (A AA) Screen Completed 07/04/2024, 05/13/2024 Medical Devices Implanted Type Area Supervisor Advice Device Identifier Shelf Expiration Date Model / Serial / Lot [employer] Erica 7fr 80cm Open Tip Luer Lock Adapter Guidewire Beatrice Hinton Latex Free 160-210 - [id number] Implanted:Qty: 1 on 02/10/2024 by Fernando Herrera MD at [facility] Stent Bilateral: Ureter [employer] Erica 10/06/2027 [id number] / / [id number] Insurance [facility]ICARE ADVANTAGE [facility] Address: [facility] [address] [place] [address] [facility] MEDICARE AETNA MEDICARE A[employer] MEDICARE Advance Directives For more information, please contact: [phone] Documents on File Type Date Recorded Patient Physicist Solid Earth Expl anation Power of Oncology Pharmacist 02/10/2024 5:37 AM * Full Code (Latest Code Status on File) Date Activated Date Inactivated Comments 02/10/2024 3:40 PM 02/13/2024 6:21 PM Care Teams Catalytic Case Operator Relationship Specialty Start Date End Date Jorge Rodriguez MD PCP - General Internal Medicine 05/12/19 [place] [address] [place] [address] Consulting Physician Urology 02/13/24
--- OUTSIDE RECORDS SUMMARY | 2025-03-11 18:16 | XMS_ITS | Encounter Summary ---
Author Organization [employer] Care Team Providers Care Unload Associate Name Role Phone Jorge Rodriguez MD Primary Care Provider [phone] Fernando Herrera MD Unavailable [phone] Jorge Coffey MD Unavailable [phone] Encounter Details Date Type Department Care Team (Latest Contact Info) Description 03/11/2025 Travel Social History Tobacco Use Types Packs/Day Years [...] st Contact Info) Description 05/13/2025 8:45 AM AUDIT ASSOCIATE Office Visit [facility] [address] [address] Jorge Coffey MD [address] [place] [address] documented as of this encounter Visit Diagnoses Not on filedocumented in this encounter Care Teams Unload Associate Relationship Specialty Start Date End Date Jorge Rodriguez MD PCP - General Internal Medicine 10/03/23 Fernando Herrera MD [address] [place] [address] Consulting Physician Urology 10/03/23 Jorge Coffey MD [address] [place] [address] Consulting Physician Oncology 10/23/23 documented as of this encounter
== END 2025-03-11 16:12 | disposition home or self-care (01) ==
PROVIDERS: PCP Internal Medicine; Visit Provider Internal Medicine
DX: M16.11 Unilateral primary osteoarthritis, right hip (principal); M17.11 Unilateral primary osteoarthritis, right knee; M51.369 Other intervertebral disc degeneration, lumbar region without mention of lumbar back pain or lower extremity pain
CPT/HCPCS: 72100; 72170; 73562